=== PATIENT | female | born 1995 | race Caucasian/White ===

== ENCOUNTER → 2016-09-16 | Outpatient (CLI) | payer OTHER ==
--- NOTE | 2016-09-16 16:00 | DX ---
Left Wrist, 4 Views, at 3:20 PM CLINICAL HISTORY: 20-year-old female who fell 6 days ago, and complains of persistent mid-navicular p ain with a grabbing motion. The patient reportedly had a prior navicular fracture at age 13. ICD 10 Diagnostic Code: M25.532. COMPARISON STUDY: None currently available. FINDINGS: The growth plates are essentially fused at the level of the distal radius and ulna. There i s no acute fracture or dislocation. The scapholunate and the lunatotriquetral distances are normal, a nd the radiocarpal alignment is anatomic. There is no pronator fat pad displacement. IMPRESSION: There is no acute or subacute fracture identified. If there is a high clinical concern regarding an occult fracture, conservative management and short-t erm repeat radiographic follow-up in 7-14 days could be considered.
== END ==
LOC: BMCIMAGING 15:23
PROVIDERS: ATTEND Family Medicine
DX: M25.532 Pain in left wrist (principal)